=== PATIENT | male | born 1990 | race American Indian/Alaskan Native ===

== ENCOUNTER 2016-08-11 13:17 | Emergency (ER) | payer OTHER ==
[2016-08-11 15:17] VITALS: BP 126/89
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
== END 2016-08-11 16:59 | disposition home or self-care (01) ==
LOC: ED 13:17
DX: M54.5 Low back pain (principal); F17.200 Nicotine dependence, unspecified, uncomplicated
CPT/HCPCS: 99282

== ENCOUNTER 2017-06-12 00:24 | Emergency (ER) | payer MEDICAID ==
[2017-06-12] MEDS ORDERED: MOTRIN PO ONE (01:01)
--- NOTE | 2017-06-12 01:38 | XRay Report ---
FINAL REPORT EXAM: XR FINGER(S) 2+V LT HISTORY: Left Thumb injury TECHNIQUE: Three views of the left thumb were submitted. FINDINGS: There is no evidence of fracture or soft tissue injury. IMPRESSION: No acute findings.
--- NOTE | 2017-06-12 04:36 | Emergency Department Report ---
Abscess Boil HPI - HPI Chief Complaint: Skin/Abscess/Foreign Body Stated Complaint: L. THUMB BLISTER Time Seen by Provider: 06/12/17 04:30 Duration: >1 Week (2 weeks) Location: Upper Extremity (left thumb) Severity: Mild History: Yes Pain, No Fever, No Purulent Drainage, No Numbness, No Foreign Body , No Previous History, No Insect Bite HPI: 27 y.o. male, presents with abscess to left thumb, painful, throbbing for 2 weeks. 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 He removed it and kept working 2 weeks ago. When he got home he started put tree oil and vasiline on it from what he was told from [place]. It began to get big and painful 1 week ago. It burst open and he peeled the skin back. The pain has been worse and it began to turn yellow. He denies discharge, odor, or fever. Home Medications: Previous Rx's Medication Instructions Recorded Last Taken Type Cyclobenzaprine HCl 7.5 mg PO BID PRN #14 tab 08/11/16 Unknown Rx [Cyclobenzaprine 7.5 MG TAB] Ibuprofen [Motrin 800 MG tab] 800 mg PO BID PRN #14 tablet 08/11/16 Unknown Rx Ibuprofen 800 mg PO Q6HR 7 Days #28 tablet 06/12/17 Unknown Rx Sulfamethoxazole/Trimethoprim 1 each PO BID 10 Days #20 tablet 06/12/17 Unknown Rx [Bactrim DS TAB] Allergies/Adverse Reactions: Allergies Allergy/AdvReac Type Severity Reaction Status Date / Time No Known Allergies Allergy Verified 06/12/17 04:31 ED Review of Systems ROS: Stated complaint: L. THUMB BLISTER Other details as noted in HPI Constitutional: no symptoms reported, see HPI. denies: chills, diaphoresis, fever, malaise, weakness Eyes: as per HPI. denies: eye pain, eye discharge, vision change ENT: as per HPI. denies: ear pain, throat pain, dental pain, hearing loss, epistaxis, congestion Respiratory: no symptoms reported, see HPI. denies: cough, orthopnea, shortness of breath, SOB with exertion, SOB at rest, stridor, wheezing Cardiovascular: as per HPI. denies: chest pain, palpitations, dyspnea on exertion, orthopnea, edema, syncope, paroxysmal nocturnal dyspnea Skin: lesions (left distal thumb). denies: as per HPI, rash, change in color, change in hair/nails, pruritus ED Past Medical Hx - Past Medical History Previous Medical History?: No - Surgical History Past Surgical History?: No - Social History Smoking Status: Never Smoker Substance Use Type: None, Alcohol - Medications Home Medications: Home Medications Medication Instructions Recorded Confirmed Last Taken Type Cyclobenzaprine HCl 7.5 mg PO BID PRN #14 tab 08/11/16 Unknown Rx [Cyclobenzaprine 7.5 MG TAB] Ibuprofen [Motrin 800 MG tab] 800 mg PO BID PRN #14 tablet 08/11/16 Unknown Rx Ibuprofen 800 mg PO Q6HR 7 Days #28 tablet 06/12/17 Unknown Rx Sulfamethoxazole/Trimethoprim 1 each PO BID 10 Days #20 tablet 06/12/17 Unknown Rx [Bactrim DS TAB] ED Abscess Boil Physical Exam - Exam General: Vital signs noted. No distress. Alert and acting appropriately. Size: 1 cm Exam: Yes Tenderness, Yes Surrounding Cellulites/Erythema, Yes Normal Neurologic Exam, Yes Normal Circulation, No Fluctuance, No Lymphangitis, No Crepitation, No Heart Murmur Exam: 1 cm nodule to left distal thumb, yellow, tender to palpation, edematous and erythematous I & D Note - I & D Note I & D Note: No ready for I&D, treated with antibiotics ED Course Vital Signs 06/12/17 00:53 Temperature 98.1 F Pulse Rate 67 Blood Pressure 122/76 O2 Sat by Pulse 100 Oximetry Critical care attestation.: If time is entered above; I have spent that time in minutes in the direct care of this critically ill patient, excluding procedure time. ED Disposition Clinical Impression: Abscess of thumb, left Disposition: DC-01 TO HOME OR SELFCARE Is pt being admited?: No Does the pt Need Aspirin: No Condition: Stable Instructions: Abscess (ED) Additional Instructions: Do regular bathing and hand washing with soap and water or alcohol based hand cleansers. Take medication for the full prescribed length of time. Your symptoms may improve before the infection is completely cleared. Skipping doses may also increase your risk of further infection that is resistant to antibiotics. Prescriptions: Ibuprofen 800 mg PO Q6HR 7 Days #28 tablet Sulfamethoxazole/Trimethoprim [Bactrim DS TAB] 1 each PO BID 10 Days #20 tablet Referrals: PRIMARY CARE, [Primary Care Provider] - 3-5 Days Forms: Work/School Release Form(ED) Time of Disposition: 04:48 Print Language: YORUBA
[2017-06-12 05:08] VITALS: BP 119/67
== END 2017-06-12 05:08 | disposition home or self-care (01) ==
LOC: ED 00:24
DX: L02.512 Cutaneous abscess of left hand (principal)

== ENCOUNTER 2020-12-04 07:04 | Emergency (ER) | payer MEDICAID ==
--- NOTE | 2020-12-04 07:46 | Emergency Department Report ---
Abscess Boil HPI - HPI Chief Complaint: Skin/Abscess/Foreign Body Stated Complaint: INSECT BITE Time Seen by Provider: 12/04/20 07:42 Duration: >1 Week Location: Other Severity: Mild History: Yes Pain, Yes Purulent Drainage, No Fever, No Numbness, No Foreign Body, No Previous History, No Insect Bite (UNKNOWN) HPI: Patient is a 30-year-old -[place] male that comes in with what he thinks is an insect bite of his buttocks that is now forming into an abscess. However, there is no area for I&D. The skin is firm. It was draining some y esterday and I suspect with warm soaks it will drain on its own. Patient is ambulatory nontoxic and [id number]. He has no fever or chills. His vital signs are normal as documented manually by the RN. Patient denies seeing any insect that has bit him he is just speculating based on what he saw on [employer]. Patient has no prior history of abscess. Home Medications: Previous Rx's Medication Instructions Recorded Last Taken Type Cyclobenzaprine HCl 7.5 mg PO BID PRN #14 tab 08/11/16 Unknown Rx [Cyclobenzaprine 7.5 MG TAB] Ibuprofen [Motrin 800 MG tab] 800 mg PO BID PRN #14 tablet 08/11/16 Unknown Rx Ibuprofen 800 mg PO Q6HR 7 Days #28 tablet 06/12/17 Unknown Rx Sulfamethoxazole/Trimethoprim 1 each PO BID 10 Days #20 tablet 12/04/20 Unknown Rx [Bactrim DS TAB] Allergies/Adverse Reactions: Allergies Allergy/AdvReac Type Severity Reaction Status Date / Time No Known Allergies Allergy Verified 12/04/20 07:42 ED Review of Systems ROS: Stated complaint: INSECT BITE Other details as noted in HPI Comment: All other systems reviewed and negative ED Past Medical Hx - Past Medical History Previous Medical History?: No - Surgical History Past Surgical History?: No - Family History Family history: no significant - Social History Smoking Status: Never Smoker Substance Use Type: None, Alcohol - Medications Home Medications: Home Medications Medication Instructions Recorded Confirmed Last Taken Type Cyclobenzaprine HCl 7.5 mg PO BID PRN #14 tab 08/11/16 Unknown Rx [Cyclobenzaprine 7.5 MG TAB] Ibuprofen [Motrin 800 MG tab] 800 mg PO BID PRN #14 tablet 08/11/16 Unknown Rx Ibuprofen 800 mg PO Q6HR 7 Days #28 tablet 06/12/17 Unknown Rx Sulfamethoxazole/Trimethoprim 1 each PO BID 10 Days #20 tablet 12/04/20 Unknown Rx [Bactrim DS TAB] ED Abscess Boil Physical Exam - Exam General: Vital signs noted. No distress. Alert and acting appropriately. Front/Back of Body, Lg (Color): 1 - 2X2 FIRM AREA; BANDAGE WITH CLEAR DRAINAGE Size: 3 cm Exam: Yes Tenderness, Yes Normal Neurologic Exam, Yes Normal Circulation, No Fluctuance, No Surrounding Cellulites/Erythema, No Lymphangitis, No Crepitation, No Heart Murmur I & D Note - I & D Note I & D Note: NO I/D Critical care attestation.: If time is entered above; I have spent that time in minutes in the direct care of this critically ill patient, excluding procedure time. ED Medical Decision Making - Medical Decision Making insect bite buttox no flaulance for I/D draining yesterday per pt bandage has clear drainage on it dc home with conservative management- soaking/bactrim/pcp follow up pt verbalizes understanding VS normal as manually documented by RN - Differential Diagnosis RO ABSCESS/CELLULITIS ED Disposition Clinical Impression: Insect bite, Abscess Disposition: DC-01 TO HOME OR SELFCARE Is pt being admited?: No Does the pt Need Aspirin: No Condition: Stable Additional Instructions: bath in tub with warm compresses we want area to drain do not pick at it keep area clean and dry THIS IS NOT a spider bite motrin or tylenol for pain med as ordered today follow up with pcp next week if not better referral below Prescriptions: Sulfamethoxazole/Trimethoprim [Bactrim DS TAB] 1 each PO BID 10 Days #20 tablet Referrals: CINDY SCALES MD [Staff Physician] - 3-5 Days Forms: Work/School Release Form(ED) Time of Disposition: 07:44
[2020-12-04 08:05] VITALS: BP 127/72
== END 2020-12-04 08:33 | disposition home or self-care (01) ==
LOC: ED 07:04
DX: S30.860A Insect bite (nonvenomous) of lower back and pelvis, initial encounter (principal); L02.31 Cutaneous abscess of buttock; Z79.1 Long term (current) use of non-steroidal anti-inflammatories (NSAID); Z79.899 Other long term (current) drug therapy; W57.XXXA Bitten or stung by nonvenomous insect and other nonvenomous arthropods, initial encounter; Y93.89 Activity, other specified; Y92.89 Other specified places as the place of occurrence of the external cause; Y99.8 Other external cause status
CPT/HCPCS: 99282